=== PATIENT | female | born 1985 | race Two or more races ===

== ENCOUNTER 2021-01-25 17:21 | Emergency (ER) | payer MEDICAID ==
[2021-01-25] MEDS ORDERED: Sodium Chloride 0.9% 10 ML Syringe FLUSH PRN (17:52)
[2021-01-25] MEDS ORDERED: Ondansetron 4 MG/2 ML SDV IVPUSH STA (17:53)
[2021-01-25] MEDS ORDERED: Morphine 2 MG/ML SYRINGE IVPUSH STA ×2 (17:53→19:32)
[2021-01-25] MEDS ORDERED: Sodium Chloride 0.9% 1,000 ML IV SCH (18:00)
[2021-01-25] MEDS ORDERED: Iopamidol 755 Mg/ML 75 ML Bottle IV ONE (18:02)
[2021-01-25] MEDS ORDERED: Alum Hydroxide/Mag Hydroxide 15 ML, Lidocaine 2% 15 ML PO ONE ×2 (19:06)
[2021-01-25] MEDS ORDERED: Ondansetron 4 MG/2 ML SDV IVPUSH ONE (19:06)
--- NOTE | 2021-01-25 19:27 | EDM.PDOC ---
ED HPI GENERAL MEDICAL PROBLEM - General Chief Complaint: Abdominal Pain Stated Complaint: ABD PAIN Time Seen by Provider: 01/25/21 17:25 Source of Information: Reports: Patient History Limitations: Reports: No Limitations - History of Present Illness INITIAL COMMENTS - FREE TEXT/NARRATIVE: Patient presented to the ED because of epigastric and RUQ pain radiation to the back. She also c/o dysuria and frequency. There is no fever/chills, cough/cold but c/o nausea, no vomiting or diarrhea. 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 01/25/21 [Rx] Past Medical History Other Cardiovascular History: internal defibulator Social & Family History - Family History Family Medical History: No Pertinent Family History - Tobacco Use Tobacco Use Status *Q: Never Tobacco User - Caffeine Use Caffeine Use: Reports: None - Recreational Drug Use Recreational Drug Use: No ED ROS GENERAL - Review of Systems Review Of Systems: See Below Constitutional: Reports: No Symptoms HEENT: Reports: No Symptoms Respiratory: Reports: No Symptoms Cardiovascular: Reports: No Symptoms Endocrine: Reports: No Symptoms GI/Abdominal: Reports: Abdominal Pain, Nausea : Reports: Dysuria, Frequency Musculoskeletal: Reports: No Symptoms Skin: Reports: No Symptoms Neurological: Reports: No Symptoms ED EXAM, GI/ABD - Physical Exam Exam: See Below Exam Limited By: No Limitations General Appearance: Alert, No Apparent Distress Ears: Normal External Exam, Normal [place] Nose: Normal Inspection, Normal Mucosa, No Blood Throat/Mouth: Normal Inspection, Normal Lips, Normal Teeth Head: Atraumatic, Normocephalic Neck: Normal Inspection, Supple, Non-Tender, Full Range of Motion Respiratory/Chest: No Respiratory Distress, Lungs Clear, Normal Breath Sounds Cardiovascular: Normal Peripheral Pulses, Regular Rate, Rhythm, No Edema, No Gallop, No JVD, No Murmur GI/Abdominal Exam: Normal Bowel Sounds, Soft, No Organomegaly, Other (epigastric and RUQ T) Back Exam: Normal Inspection, Full Range of Motion Extremities: Normal Inspection, Normal Range of Motion, Non-Tender Neurological: Alert, Oriented, CN II-XII Intact, Normal Cognition Psychiatric: Normal Affect, Normal Mood Course - Vital Signs Text/Narrative:: Lab/CT result was reviewed and discussed with patient NS 1 L bolus Zofran 4 mg IV x 2 dose Morphine 2 mg IV x2 doses GI cocktail po x1 Last Recorded V/S: Last Vital Signs Temp 37.1 C 01/25/21 17:22 Pulse 81 01/25/21 19:45 Resp 18 01/25/21 19:45 BP 117/83 01/25/21 19:45 Pulse Ox 99 01/25/21 19:45 - Orders/Labs/Meds Orders: Active Orders 24 hr Category Date Time Status Saline Lock Insert [OM.PC] Routine Oth 01/25/21 17:52 Ordered Labs: Laboratory Tests 01/25/21 01/25/21 01/25/21 Range/Units 17:45 18:15 18:15 WBC 5.2 (3.0-10.3) x10-3/uL RBC 4.28 (3.60-5.20) x10(6)uL Hgb 13.4 (11.4-15.5) g/dL Hct 39.9 (34.2-48.2) % MCV 93.2 (76.7-100.5) fL MCH 31.3 (23.9-33.9) pg MCHC 33.6 (31.9-34.8) g/dL RDW 14.0 (12.3-16.5) % Plt Count 239 (151-488) x10(3)uL MPV 8.1 (7.1-12.4) fL Neut % (Auto) 63.0 (30.8-76.2) % Lymph % (Auto) 25.3 (18.4-52.1) % [place] % (Auto) 8.4 (4.4-15.7) % Eos % (Auto) 2.4 (0.6-8.1) % Baso % (Auto) 0.9 (0.2-1.5) % Neut # (Auto) 3.3 (1.5-6.3) x10-3/uL Lymph # (Auto) 1.3 (1.0-4.4) x10-3/uL [place] # (Auto) 0.4 (0.3-1.0) x10-3/uL Eos # (Auto) 0.1 (0.0-0.8) x10-3/uL Baso # (Auto) 0.0 (0.0-0.1) x10-3/uL Sodium 143 (135-145) mmol/L Potassium 4.0 (3.5-5.3) mmol/L Chloride 107 (100-110) mmol/L Carbon Dioxide 28 (21-32) mmol/L BUN 11 (7-18) mg/dL Creatinine 0.7 (0.55-1.02) mg/dL Est Cr Clr Drug Dosing 79.80 mL/min Estimated GFR (MDRD) > 60 (>60) BUN/Creatinine Ratio 15.7 (9-20) Glucose 103 (80-116) mg/dL Calcium 8.4 L (8.6-10.2) mg/dL Total Bilirubin 0.2 (0.1-1.3) mg/dL AST 14 (5-25) IU/L ALT 26 (12-36) U/L Alkaline Phosphatase 57 (56-112) IU/L Total Protein 6.8 (6.0-8.0) g/dL Albumin 3.4 L (3.5-5.2) g/dL Globulin 3.4 g/dL Albumin/Globulin Ratio 1.0 Amylase 98 (25-115) U/L Lipase (73-393) U/L Urine Color Yellow (YELLOW) Urine Appearance Clear (CLEAR) Urine pH 6.0 (5.0-6.5) Ur Specific [place] 1.020 (1.010-1.025) Urine Protein Negative (NEGATIVE) mg/dL Urine Glucose (UA) Normal (NORMAL) mg/dL Urine Ketones Negative (NEGATIVE) mg/dL Urine Occult Blood Negative (NEGATIVE) Urine Nitrite Negative (NEGATIVE) Urine Bilirubin Negative (NEGATIVE) Urine Urobilinogen Normal (NEGATIVE) mg/dL Ur Leukocyte Esterase Negative (NEGATIVE) Urine RBC 0-5 (0-5) Urine WBC 0-5 (0-5) Ur Squamous Epith Cells Few H (NS,R,O) Urine Bacteria Few H (NS) 01/25/21 Range/Units 18:15 WBC (3.0-10.3) x10-3/uL RBC (3.60-5.20) x10(6)uL Hgb (11.4-15.5) g/dL Hct (34.2-48.2) % MCV (76.7-100.5) fL MCH (23.9-33.9) pg MCHC (31.9-34.8) g/dL RDW (12.3-16.5) % Plt Count (151-488) x10(3)uL MPV (7.1-12.4) fL Neut % (Auto) (30.8-76.2) % Lymph % (Auto) (18.4-52.1) % [place] % (Auto) (4.4-15.7) % Eos % (Auto) (0.6-8.1) % Baso % (Auto) (0.2-1.5) % Neut # (Auto) (1.5-6.3) x10-3/uL Lymph # (Auto) (1.0-4.4) x10-3/uL [place] # (Auto) (0.3-1.0) x10-3/uL Eos # (Auto) (0.0-0.8) x10-3/uL Baso # (Auto) (0.0-0.1) x10-3/uL Sodium (135-145) mmol/L Potassium (3.5-5.3) mmol/L Chloride (100-110) mmol/L Carbon Dioxide (21-32) mmol/L BUN (7-18) mg/dL Creatinine (0.55-1.02) mg/dL Est Cr Clr Drug Dosing mL/min Estimated GFR (MDRD) (>60) BUN/Creatinine Ratio (9-20) Glucose (80-116) mg/dL Calcium (8.6-10.2) mg/dL Total Bilirubin (0.1-1.3) mg/dL AST (5-25) IU/L ALT (12-36) U/L Alkaline Phosphatase (56-112) IU/L Total Protein (6.0-8.0) g/dL Albumin (3.5-5.2) g/dL Globulin g/dL Albumin/Globulin Ratio Amylase (25-115) U/L Lipase 92 (73-393) U/L Urine Color (YELLOW) Urine Appearance (CLEAR) Urine pH (5.0-6.5) Ur Specific [place] (1.010-1.025) Urine Protein (NEGATIVE) mg/dL Urine Glucose (UA) (NORMAL) mg/dL Urine Ketones (NEGATIVE) mg/dL Urine Occult Blood (NEGATIVE) Urine Nitrite (NEGATIVE) Urine Bilirubin (NEGATIVE) Urine Urobilinogen (NEGATIVE) mg/dL Ur Leukocyte Esterase (NEGATIVE) Urine RBC (0-5) Urine WBC (0-5) Ur Squamous Epith Cells (NS,R,O) Urine Bacteria (NS) Meds: Medications Discontinued Medications Generic Name Dose Route Start Last Admin Trade Name Freq PRN Reason Stop Dose Admin Al Hydroxide/Mg Hydroxide 15 0 ml 01/25/21 19:06 01/25/21 19:18 ml/ Lidocaine HCl 15 ml PO 01/25/21 19:07 30 ml ONETIME ONE Administration Sodium Chloride 1,000 mls @ 999 mls/hr 01/25/21 18:00 01/25/21 18:40 Normal Saline IV 999 mls/hr ASDIRECTED YOSSI Administration Iopamidol 75 ml 01/25/21 18:02 01/25/21 18:29 Iopamidol 755 Mg/Ml 75 Ml Bottle IV 01/25/21 18:03 72 ml ASDIRECTED ONE Administration Morphine Sulfate 2 mg 01/25/21 17:53 01/25/21 18:45 Morphine 2 Mg/Ml Syringe IVPUSH 01/25/21 17:54 2 mg NOW STA Administration Morphine Sulfate 2 mg 01/25/21 19:32 01/25/21 19:39 Morphine 2 Mg/Ml Syringe IVPUSH 01/25/21 19:33 2 mg NOW STA Administration Ondansetron HCl 4 mg 01/25/21 17:53 01/25/21 18:42 Ondansetron 4 Mg/2 Ml Sdv IVPUSH 01/25/21 17:54 4 mg NOW STA Administration Ondansetron HCl 4 mg 01/25/21 19:06 01/25/21 19:16 Ondansetron 4 Mg/2 Ml Sdv IVPUSH 01/25/21 19:07 4 mg ONETIME ONE Administration Sodium Chloride 10 ml 01/25/21 17:52 Sodium Chloride 0.9% 10 Ml Syringe FLUSH ASDIRECTED PRN Keep Vein Open Departure - Departure Time of Disposition: 19:45 Disposition: Home, Self-Care 01 Condition: Good Clinical Impression: GERD (gastroesophageal reflux disease), Abdominal pain - Discharge Information Prescriptions: Omeprazole 20 mg PO DAILY #30 tablet.dr Instructions: Food Choices for Gastroesophageal Reflux Disease, Adult, [id number], Gastroesophageal Reflux Disease, Adult, [id number] Referrals: PCP,None [Primary Care Provider] - Forms: ED Department Discharge Additional Instructions: Please read discharge instructions on GERD/Acid Reflux Avoid spicy and greasy foods while being treated TUMS extra strength(over the counter at [facility]) chew 3 tablets and swallow,drink lukewarm water with it Omeprazole 20 mg daily Follow up as needed Sepsis Event Note (ED) - Evaluation Sepsis Screening Result: No Definite Risk - My Orders Last 24 Hours: My Active Orders 01/25/21 17:52 Saline Lock Insert [OM.PC] Routine - Assessment/Plan Last 24 Hours: My Active Orders 01/25/21 17:52 Saline Lock Insert [OM.PC] Routine
--- NOTE | 2021-01-25 20:20 | CT ---
INDICATION: Right upper quadrant and epigastric pain. CT ABDOMEN AND PELVIS WITH IV CONTRAST [id number]: Spiral 3.75 mm axial sections were obtained through the abdomen and pelvis with 72 mL Isovue-370 at 1.8 mL/second with sagittal and coronal reconstructions 01/25/21 - no comparisons. Total exam DLP was 562.32 mGy-cm. The lower lung reyes and pleural spaces visualized appeared normal. The heart appeared normal in size. No pericardial effusion was seen. The liver, gallbladder, adrenal glands, kidneys, spleen, and pancreas appeared to be normal. No retroperitoneal mass was seen. The appendix appeared normal, visualized on axial image 55 to 68. No evidence of free air or a definite bowel obstruction was seen. There are fluid-filled loops of small bowel which are of no significant, possibly relating to fluid intake. No significant air-fluid levels or mechanically obstructive process was strongly suggested. The uterus is absent compatible with hysterectomy. In the left lower pelvis there is a thick-walled mass with central low density which may represent an ovarian cyst, possibly complicated, even a cystic mass. Follow-up study may be warranted such as pelvic ultrasound to further document this lesion. It measured approximately 23.5 x 25.9 mm. No other mass lesions, organomegaly, or free fluid collections were identified in the abdomen and pelvis. No evidence of pyelonephritis or obstructive uropathy was seen. No evidence of abdominal wall or inguinal hernias were identified. IMPRESSION: 1. 25.9 mm apparently cystic mass with thick wall felt to be in the area of the left ovary in the pelvis. Follow-up ultrasound may be helpful for further evaluation. 2. No specific etiology was identified regarding the patient's right upper quadrant pain. Report was called to Dr. Lee at 1858 hours, 01/25/21. [facility]
== END 2021-01-25 20:00 | disposition home or self-care (01) ==
LOC: FB.ED 17:21
DX: K21.9 Gastro-esophageal reflux disease without esophagitis (principal); Z79.899 Other long term (current) drug therapy
CPT/HCPCS: 36415; 74177; 80053; 81001; 82150; 83690; 85025; 96374; 96375; 96376; 99284; 99284-25; A9270-GY; J2270; J2405; J7030; Q9967

== ENCOUNTER 2021-03-23 20:44 | Emergency (ER) | payer SELFPAY ==
[2021-03-23] MEDS ORDERED: Sodium Chloride 0.9% 1,000 ML IV ONE (21:18)
[2021-03-23] MEDS ORDERED: Ketorolac 30 MG/ML SDV IVPUSH ONE (21:18)
[2021-03-23] MEDS ORDERED: Metoclopramide 10 MG/2 ML SDV IVPUSH ONE (21:18)
--- NOTE | 2021-03-23 21:25 | EDM.PDOC ---
ED HPI GENERAL MEDICAL PROBLEM - General Chief Complaint: Abdominal Pain Stated Complaint: abdominal pain and itching Time Seen by Provider: 03/23/21 21:05 Source of Information: Reports: Patient History Limitations: Reports: No Limitations - History of Present Illness INITIAL COMMENTS - FREE TEXT/NARRATIVE: c/o abd pain x 18h pt lives with her 2 sons, not working outside house home yesterday morning when developed pain across abd, "whole abd," has not gone away, now worse, not cramping, no radiation has felt warm, no temp here eats food and "feels like I am going to explode", ate yogurt for supper h/o hys for fibroids, no other abd surgery no previous abd pain APAP and ibuprofen did not help friends dropped her off at the the ED BM today was "normal" some N, no V Abdomen Pain Score (Numeric/FACES): 10 - Related Data Allergies Allergy/AdvReac Type Severity Reaction Status Date / Time No Known Allergies Allergy Verified 03/23/21 21:07 Home Meds: Home Meds Omeprazole 20 mg PO DAILY #30 tablet. 01/25/21 [Rx] Past Medical History Other Cardiovascular History: internal defibulator Social & Family History - Family History Family Medical History: No Pertinent Family History - Tobacco Use Tobacco Use Status *Q: Unknown Ever Used Tobacco - Caffeine Use Caffeine Use: Reports: None ED ROS GENERAL - Review of Systems Review Of Systems: See Below Constitutional: Reports: No Symptoms HEENT: Reports: No Symptoms Respiratory: Reports: No Symptoms Cardiovascular: Reports: No Symptoms Endocrine: Reports: No Symptoms GI/Abdominal: Reports: Abdominal Pain, Nausea. Denies: Constipation, Diarrhea, Vomiting : Reports: No Symptoms Musculoskeletal: Reports: No Symptoms Skin: Reports: No Symptoms Neurological: Reports: No Symptoms Psychiatric: Reports: No Symptoms Hematologic/Lymphatic: Reports: No Symptoms Immunologic: Reports: No Symptoms ED EXAM, GI/ABD - Physical Exam Exam: See Below Exam Limited By: No Limitations General Appearance: Alert, WD/WN, No Apparent Distress, Other (moves easily, appears uncomfortable, tearful at times) Ears: Hearing Grossly Normal Nose: Normal Inspection, Normal Mucosa Throat/Mouth: Normal Inspection, Normal Lips, Normal Teeth, Normal Voice, No Airway Compromise Head: Atraumatic, Normocephalic Neck: Normal Inspection, Supple, Non-Tender. No: Lymphadenopathy (R), Lymphadenopathy (L) Respiratory/Chest: No Respiratory Distress, Lungs Clear, Normal Breath Sounds, Chest Non-Tender Cardiovascular: Regular Rate, Rhythm, No Edema, No Murmur GI/Abdominal Exam: Normal Bowel Sounds, Soft, No Organomegaly, No Distention, Other (ND, very soft, normal BS, 1+ tender across lower abd but not flanks or upper abd, RLQ not more tender than LLQ, no CVAT). No: Guarding, Rigid, Rebound, Abnormal Bowel Sounds Back Exam: Normal Inspection, Full Range of Motion. No: CVA Tenderness (R), CVA Tenderness (L) Extremities: Normal Inspection, Normal Range of Motion, Non-Tender Neurological: Alert, Oriented, CN II-XII Intact, Normal Cognition, No Motor/Sensory Deficits Psychiatric: Normal Affect, Normal Mood Skin Exam: Warm, Dry, Intact, Normal Color, No Rash Lymphatic: No Adenopathy Course - Vital Signs Last Recorded V/S: Last Vital Signs Temp 36.8 C 03/23/21 21:19 Pulse 98 03/23/21 21:19 Resp 14 03/23/21 21:19 BP 120/73 03/23/21 21:19 Pulse Ox 97 03/23/21 21:19 - Orders/Labs/Meds Orders: Active Orders 24 hr Category Date Time Status Abdomen 2V AP Flat Upright [CR] Stat Exams 03/23/21 22:02 Taken Magnesium Citrate [Citrate of Magnesia] Med 03/23/21 22:57 Once 296 ml PO ONETIME ONE Sodium Chloride 0.9% [Saline Flush] Med 03/23/21 22:50 Active 10 ml FLUSH ASDIRECTED PRN Medication Orders Sodium Chloride (Sodium Chloride 0.9% 10 Ml Syringe) 10 ml FLUSH ASDIRECTED PRN PRN Reason: Keep Vein Open Last Admin: 03/23/21 22:51 Dose: 10 ml Documented by: JUSTA Labs: Laboratory Tests 03/23/21 03/23/21 03/23/21 Range/Units 20:55 21:27 21:27 WBC 6.5 (3.0-10.3) x10-3/uL RBC 4.87 (3.60-5.20) x10(6)uL Hgb 14.7 (11.4-15.5) g/dL Hct 44.3 (34.2-48.2) % MCV 91.0 (76.7-100.5) fL MCH 30.2 (23.9-33.9) pg MCHC 33.2 (31.9-34.8) g/dL RDW 14.0 (12.3-16.5) % Plt Count 288 (151-488) x10(3)uL MPV 7.4 (7.1-12.4) fL Neut % (Auto) 62.4 (30.8-76.2) % Lymph % (Auto) 26.4 (18.4-52.1) % [place] % (Auto) 8.4 (4.4-15.7) % Eos % (Auto) 2.1 (0.6-8.1) % Baso % (Auto) 0.7 (0.2-1.5) % Neut # (Auto) 4.0 (1.5-6.3) x10-3/uL Lymph # (Auto) 1.7 (1.0-4.4) x10-3/uL [place] # (Auto) 0.5 (0.3-1.0) x10-3/uL Eos # (Auto) 0.1 (0.0-0.8) x10-3/uL Baso # (Auto) 0.0 (0.0-0.1) x10-3/uL Sodium 140 (135-145) mmol/L Potassium 3.8 (3.5-5.3) mmol/L Chloride 103 (100-110) mmol/L Carbon Dioxide 28 (21-32) mmol/L BUN 24 H D (7-18) mg/dL Creatinine 0.6 (0.55-1.02) mg/dL Est Cr Clr Drug Dosing TNP Estimated GFR (MDRD) > 60 (>60) BUN/Creatinine Ratio 40.0 H (9-20) Glucose 98 (80-116) mg/dL Calcium 9.4 (8.6-10.2) mg/dL Total Bilirubin 0.2 (0.1-1.3) mg/dL AST 13 (5-25) IU/L ALT 29 D (12-36) U/L Alkaline Phosphatase 70 (56-112) IU/L C-Reactive Protein (0.5-0.9) mg/dL Total Protein 7.8 (6.0-8.0) g/dL Albumin 3.8 (3.5-5.2) g/dL Globulin 4.0 g/dL Albumin/Globulin Ratio 1.0 Lipase (73-393) U/L Urine Color Yellow (YELLOW) Urine Appearance Clear (CLEAR) Urine pH 6.0 (5.0-6.5) Ur Specific [place] 1.015 (1.010-1.025) Urine Protein Negative (NEGATIVE) mg/dL Urine Glucose (UA) Normal (NORMAL) mg/dL Urine Ketones Negative (NEGATIVE) mg/dL Urine Occult Blood Moderate H (NEGATIVE) Urine Nitrite Negative (NEGATIVE) Urine Bilirubin Negative (NEGATIVE) Urine Urobilinogen Normal (NEGATIVE) mg/dL Ur Leukocyte Esterase Negative (NEGATIVE) Urine RBC 0-5 (0-5) Urine WBC 0-5 (0-5) Ur Squamous Epith Cells Few H (NS,R,O) Urine Bacteria Few H (NS) 03/23/21 Range/Units 21:27 WBC (3.0-10.3) x10-3/uL RBC (3.60-5.20) x10(6)uL Hgb (11.4-15.5) g/dL Hct (34.2-48.2) % MCV (76.7-100.5) fL MCH (23.9-33.9) pg MCHC (31.9-34.8) g/dL RDW (12.3-16.5) % Plt Count (151-488) x10(3)uL MPV (7.1-12.4) fL Neut % (Auto) (30.8-76.2) % Lymph % (Auto) (18.4-52.1) % [place] % (Auto) (4.4-15.7) % Eos % (Auto) (0.6-8.1) % Baso % (Auto) (0.2-1.5) % Neut # (Auto) (1.5-6.3) x10-3/uL Lymph # (Auto) (1.0-4.4) x10-3/uL [place] # (Auto) (0.3-1.0) x10-3/uL Eos # (Auto) (0.0-0.8) x10-3/uL Baso # (Auto) (0.0-0.1) x10-3/uL Sodium (135-145) mmol/L Potassium (3.5-5.3) mmol/L Chloride (100-110) mmol/L Carbon Dioxide (21-32) mmol/L BUN (7-18) mg/dL Creatinine (0.55-1.02) mg/dL Est Cr Clr Drug Dosing Estimated GFR (MDRD) (>60) BUN/Creatinine Ratio (9-20) Glucose (80-116) mg/dL Calcium (8.6-10.2) mg/dL Total Bilirubin (0.1-1.3) mg/dL AST (5-25) IU/L ALT (12-36) U/L Alkaline Phosphatase (56-112) IU/L C-Reactive Protein < 0.2 L (0.5-0.9) mg/dL Total Protein (6.0-8.0) g/dL Albumin (3.5-5.2) g/dL Globulin g/dL Albumin/Globulin Ratio Lipase 108 (73-393) U/L Urine Color (YELLOW) Urine Appearance (CLEAR) Urine pH (5.0-6.5) Ur Specific [place] (1.010-1.025) Urine Protein (NEGATIVE) mg/dL Urine Glucose (UA) (NORMAL) mg/dL Urine Ketones (NEGATIVE) mg/dL Urine Occult Blood (NEGATIVE) Urine Nitrite (NEGATIVE) Urine Bilirubin (NEGATIVE) Urine Urobilinogen (NEGATIVE) mg/dL Ur Leukocyte Esterase (NEGATIVE) Urine RBC (0-5) Urine WBC (0-5) Ur Squamous Epith Cells (NS,R,O) Urine Bacteria (NS) Meds: Medications Generic Name Dose Route Start Last Admin Trade Name Freq PRN Reason Stop Dose Admin Sodium Chloride 10 ml 03/23/21 22:50 03/23/21 22:51 Sodium Chloride 0.9% 10 Ml Syringe FLUSH 10 ml ASDIRECTED PRN Administration Keep Vein Open Discontinued Medications Generic Name Dose Route Start Last Admin Trade Name Freq PRN Reason Stop Dose Admin Diphenhydramine HCl 25 mg 03/23/21 22:05 03/23/21 22:45 Diphenhydramine 50 Mg/Ml Sdv IVPUSH 03/23/21 22:06 25 mg ONETIME ONE Administration Sodium Chloride 1,000 mls @ 999 mls/hr 03/23/21 21:18 03/23/21 21:29 Normal Saline IV 03/23/21 22:18 999 mls/hr .BOLUS ONE Administration Ketorolac Tromethamine 30 mg 03/23/21 21:18 03/23/21 21:31 Ketorolac 30 Mg/Ml Sdv IVPUSH 03/23/21 21:19 30 mg ONETIME ONE Administration Metoclopramide HCl 10 mg 03/23/21 21:18 03/23/21 21:32 Metoclopramide 10 Mg/2 Ml Sdv IVPUSH 03/23/21 21:19 10 mg ONETIME ONE Administration - Re-Assessments/Exams Free Text/Narrative Re-Assessment/Exam: 03/23/21 23:00 labs neg except mild inc'd BUN KUB 2v with plug of stool in RUQ as well across transverse colon and in pelvis, no AFL hx/PE/labs/imaging all c/w constipation, nonacute abd, no localized pain, abd quite soft and nontender to even deep palpation after meds Departure - Departure Time of Disposition: 22:57 Disposition: Home, Self-Care 01 Condition: Good Clinical Impression: Colon spasm, Constipation - Discharge Information *PRESCRIPTION DRUG MONITORING PROGRAM REVIEWED*: Not Applicable *COPY OF PRESCRIPTION DRUG MONITORING REPORT IN PATIENT JANETH: Not Applicable Instructions: Constipation, Adult Forms: ED Department Discharge Additional Instructions: Drink a second bottle of magnesium citrate in the morning. For pain and spasm, take ibuprofen 200 mg 3 tabs and diphenhydramine (Benadryl) 25 mg 1 tab every 6 hours for 2 or 3 more doses. Use heat for 10 minutes in tub or shower every 2 hours as needed. See your doctor in 2 days if you are not 100% pain free. Return to Emergency Department if you feel worse. Sepsis Event Note (ED) - Focused Exam Vital Signs: Vital Signs Temp Pulse Resp BP Pulse Ox 03/23/21 21:19 36.8 C 98 14 120/73 97 - My Orders Last 24 Hours: My Active Orders 03/23/21 22:02 Abdomen 2V AP Flat Upright [CR] Stat 03/23/21 22:50 Sodium Chloride 0.9% [Saline Flush] 10 ml FLUSH ASDIRECTED PRN 03/23/21 22:57 Magnesium Citrate [Citrate of Magnesia] 296 ml PO ONETIME ONE - Assessment/Plan Last 24 Hours: My Active Orders 03/23/21 22:02 Abdomen 2V AP Flat Upright [CR] Stat 03/23/21 22:50 Sodium Chloride 0.9% [Saline Flush] 10 ml FLUSH ASDIRECTED PRN 03/23/21 22:57 Magnesium Citrate [Citrate of Magnesia] 296 ml PO ONETIME ONE
[2021-03-23] MEDS ORDERED: diphenhydrAMINE 50 MG/ML SDV IVPUSH ONE (22:05)
[2021-03-23] MEDS ORDERED: Sodium Chloride 0.9% 10 ML Syringe FLUSH PRN (22:50)
[2021-03-23] MEDS ORDERED: Magnesium Citrate Solution 296 ML Bottle PO ONE (22:57)
--- NOTE | 2021-03-24 16:58 | CR ---
INDICATION: Lower abdominal pain x2 days. ABDOMEN TWO-VIEW: Four images of the abdomen in supine and upright projections revealed a nonspecific pattern of gas and feces with a moderate amount of stool in the colon, with no evidence of free air or bowel obstruction. A minimal dextroconvex rotoscoliosis of the lower middle lumbar spine is noted. No organomegaly, mass lesions or pathologic calcifications were identified. Lower lung reyes and pleural spaces appeared unremarkable. IMPRESSION: 1. Nonacute abdomen - moderate amount of stool present in the colon with gas and stool noted in the rectum and rectosigmoid areas. 2. Mild scoliosis. MTDD
== END 2021-03-23 23:13 | disposition home or self-care (01) ==
LOC: FB.ED 20:44
DX: K58.1 Irritable bowel syndrome with constipation (principal); Z79.899 Other long term (current) drug therapy
CPT/HCPCS: 74019; 80053; 81001; 83690; 85025; 86140; 96374; 96375; 99284; A9270; J1200; J1885; J2765; J7030

== ENCOUNTER 2021-04-03 23:37 | Emergency (ER) | payer SELFPAY ==
[2021-04-04] MEDS ORDERED: Aspirin 81 MG Tab.Chew PO ONE (00:11)
--- NOTE | 2021-04-04 00:53 | EDM.PDOC ---
ED HPI GENERAL MEDICAL PROBLEM - General Chief Complaint: General Stated Complaint: Weakness, Chest Pressure Time Seen by Provider: 04/03/21 23:40 Source of Information: Reports: Patient, Family History Limitations: Reports: No Limitations - History of Present Illness INITIAL COMMENTS - FREE TEXT/NARRATIVE: Patient presented to the ED because of chset pain which stated 2 days ago. the pain is sharp, left ant chest wall, pleuritic type. There is o N/V, no fever, chills, cough or cold. - Related Data Allergies Allergy/AdvReac Type Severity Reaction Status Date / Time No Known Allergies Allergy Verified 03/23/21 21:07 Home Meds: Home Meds Omeprazole 20 mg PO DAILY #30 tablet. 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: - Past Surgical History Female Surgical History: Reports: Hysterectomy Social & Family History - Family History Family Medical History: No Pertinent Family History - Caffeine Use Caffeine Use: Reports: None ED ROS GENERAL - Review of Systems Review Of Systems: See Below Constitutional: Reports: No Symptoms HEENT: Reports: No Symptoms Respiratory: Reports: No Symptoms Cardiovascular: Reports: Chest Pain Endocrine: Reports: No Symptoms GI/Abdominal: Reports: No Symptoms : Reports: No Symptoms Musculoskeletal: Reports: No Symptoms ED EXAM, GENERAL - Physical Exam Exam: See Below Exam Limited By: No Limitations General Appearance: Alert, No Apparent Distress Ears: Normal External Exam, Normal Canal Nose: Normal Inspection, Normal Mucosa, No Blood Throat/Mouth: Normal Inspection, Normal Lips, Normal Teeth, Normal Gums Head: Atraumatic, Normocephalic Neck: Normal Inspection, Supple, Non-Tender, Full Range of Motion Respiratory/Chest: No Respiratory Distress, Lungs Clear, Normal Breath Sounds, No Accessory Muscle Use, Other (Left chest wall tenderness) Cardiovascular: Normal Peripheral Pulses, Regular Rate, Rhythm, No Edema, No Gallop GI/Abdominal: Normal Bowel Sounds, Soft, Non-Tender, No Organomegaly, No Distention, No Abnormal Bruit Back Exam: Normal Inspection, Full Range of Motion Extremities: Normal Inspection, Normal Range of Motion Neurological: Alert, Oriented, CN II-XII Intact, Normal Cognition Psychiatric: Normal Affect, Normal Mood #1 Interpretation EKG Date: 04/03/21 Time: 23:38 Rhythm: NSR Rate (Beats/Min): 79 [place]: Normal P-Wave: Present QRS: Normal TN/PQ Interval: 138 Comparison: NA - No Prior EKG EKG Interpretation Comments: NSR Course - Vital Signs Text/Narrative:: Lab/EKG result was reviewed with patient and her son ASA 324 mg PO x1 Toradol 60 mg IM x1 Flexeril 10 mg PO x1 Last Recorded V/S: Last Vital Signs Temp 36.6 C 04/03/21 23:40 Pulse Resp BP Pulse Ox - Orders/Labs/Meds Labs: Laboratory Tests 04/04/21 04/04/21 04/04/21 Range/Units 00:15 00:15 00:15 WBC 6.0 (3.0-10.3) x10-3/uL RBC 4.44 (3.60-5.20) x10(6)uL Hgb 13.5 (11.4-15.5) g/dL Hct 40.5 (34.2-48.2) % MCV 91.3 (76.7-100.5) fL MCH 30.4 (23.9-33.9) pg MCHC 33.3 (31.9-34.8) g/dL RDW 13.5 (12.3-16.5) % Plt Count 292 (151-488) x10(3)uL MPV 7.0 L (7.1-12.4) fL Neut % (Auto) 53.4 (30.8-76.2) % Lymph % (Auto) 35.7 (18.4-52.1) % [place] % (Auto) 7.1 (4.4-15.7) % Eos % (Auto) 2.7 (0.6-8.1) % Baso % (Auto) 1.1 (0.2-1.5) % Neut # (Auto) 3.2 (1.5-6.3) x10-3/uL Lymph # (Auto) 2.1 (1.0-4.4) x10-3/uL Stephens # (Auto) 0.4 (0.3-1.0) x10-3/uL Eos # (Auto) 0.2 (0.0-0.8) x10-3/uL Baso # (Auto) 0.1 (0.0-0.1) x10-3/uL Sodium 140 (135-145) mmol/L Potassium 3.7 (3.5-5.3) mmol/L Chloride 105 (100-110) mmol/L Carbon Dioxide 25 (21-32) mmol/L BUN 20 H (7-18) mg/dL Creatinine 0.8 (0.55-1.02) mg/dL Est Cr Clr Drug Dosing TNP Estimated GFR (MDRD) > 60 (>60) BUN/Creatinine Ratio 25.0 H (9-20) Glucose 102 (80-116) mg/dL Calcium 8.5 L (8.6-10.2) mg/dL Total Bilirubin 0.3 (0.1-1.3) mg/dL AST 11 D (5-25) IU/L ALT 23 D (12-36) U/L Alkaline Phosphatase 59 (56-112) IU/L Troponin I 6.1 (4.0-60.3) pg/mL Total Protein 7.0 (6.0-8.0) g/dL Albumin 3.5 (3.5-5.2) g/dL Globulin 3.5 g/dL Albumin/Globulin Ratio 1.0 Meds: Medications Discontinued Medications Generic Name Dose Route Start Last Admin Trade Name Freq PRN Reason Stop Dose Admin Aspirin 324 mg 04/04/21 00:11 04/04/21 00:24 Aspirin 81 Mg Tab.Chew PO 04/04/21 00:12 324 mg ONETIME ONE Administration Cyclobenzaprine HCl 10 mg 04/04/21 01:00 04/04/21 01:07 Cyclobenzaprine 10 Mg Tab PO 04/04/21 01:01 10 mg NOW STA Administration Ketorolac Tromethamine 60 mg 04/04/21 01:00 04/04/21 01:07 Ketorolac 30 Mg/Ml Sdv IM 04/04/21 01:01 60 mg NOW STA Administration Departure - Departure Time of Disposition: 12:50 Disposition: Home, Self-Care 01 Condition: Good Clinical Impression: Atypical chest pain - Discharge Information Prescriptions: Cyclobenzaprine [Flexeril] 10 mg PO TID PRN #30 tab PRN Reason: Spasms Instructions: Nonspecific Chest Pain, Adult, [id number] Referrals: PCP,None [Primary Care Provider] - Forms: ED Department Discharge Additional Instructions: Please read discharge instructions on atypical chest pain Take flexeril 10 mg, ibuprofen 800 mg, tylenol 1000 mg every 8 hours as needed for pain Follow up as needed
[2021-04-04] MEDS ORDERED: Cyclobenzaprine 10 MG Tab PO STA (01:00)
[2021-04-04] MEDS ORDERED: Ketorolac 30 MG/ML SDV IM STA (01:00)
== END 2021-04-04 01:30 | disposition home or self-care (01) ==
LOC: FB.ED 23:37
DX: R07.89 Other chest pain (principal); R07.81 Pleurodynia; Z79.899 Other long term (current) drug therapy
CPT/HCPCS: 36415; 80053; 84484; 85025; 93005; 96372; 99285; A9270; J1885

== ENCOUNTER 2021-06-01 20:06 | Emergency (ER) | payer SELFPAY ==
[2021-06-01] MEDS ORDERED: Ketorolac 30 MG/ML SDV IM ONE (20:27)
[2021-06-01] MEDS ORDERED: hydrOXYzine HCl 50 MG/ML SDV IM ONE (20:27)
[2021-06-01] MEDS ORDERED: Loperamide 2 MG Cap PO ONE (20:28)
--- NOTE | 2021-06-01 20:33 | EDM.PDOC ---
ED HPI GENERAL MEDICAL PROBLEM - General Chief Complaint: General Stated Complaint: stomach ache/diar. Time Seen by Provider: 06/01/21 20:30 Source of Information: Reports: Patient History Limitations: Reports: No Limitations - History of Present Illness INITIAL COMMENTS - FREE TEXT/NARRATIVE: Neha complains of diarrhea x 3 days,associated with abd pain,nausea. No fever.Unable to keep anything down. Has tried [facility] Imodium,with no relief. She does have a h/o similar symptoms in the past. Also,she recently had covid. 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 ED EXAM, GENERAL - Physical Exam Exam: See Below Exam Limited By: No Limitations General Appearance: Anxious Nose: Normal Inspection Respiratory/Chest: No Respiratory Distress, Lungs Clear GI/Abdominal: Normal Bowel Sounds, Soft, Non-Tender. No: Distended Psychiatric: Anxious, Tearful Skin Exam: Warm Course - Vital Signs Last Recorded V/S: Last Vital Signs Temp 98.1 F 06/01/21 20:14 Pulse 96 06/01/21 20:14 Resp 18 06/01/21 20:14 BP 117/79 06/01/21 20:14 Pulse Ox 97 06/01/21 20:14 - Orders/Labs/Meds Meds: Medications Discontinued Medications Generic Name Dose Route Start Last Admin Trade Name Freq PRN Reason Stop Dose Admin Hydroxyzine HCl 100 mg 06/01/21 20:27 06/01/21 20:33 Hydroxyzine Hcl 50 Mg/Ml Sdv IM 06/01/21 20:28 100 mg ONETIME ONE Administration Ketorolac Tromethamine 60 mg 06/01/21 20:27 06/01/21 20:33 Ketorolac 30 Mg/Ml Sdv IM 06/01/21 20:28 60 mg ONETIME ONE Administration Loperamide HCl 2 mg 06/01/21 20:28 06/01/21 20:33 Loperamide 2 Mg Cap PO 06/01/21 20:29 2 mg ONETIME ONE Administration Departure - Departure Time of Disposition: 20:43 Disposition: Home, Self-Care 01 Clinical Impression: Colon spasm Diarrhea Qualifiers: Diarrhea type: unspecified type Qualified Code(s): R19.7 - Diarrhea, unspecified Abdominal pain Qualifiers: Abdominal location: generalized Qualified Code(s): R10.84 - Generalized abdominal pain - Discharge Information Prescriptions: Diphenoxylate HCl/Atropine [Lomotil Tablet] 1 each PO QID #10 tablet Ondansetron [Zofran ODT] 4 mg PO Q6H PRN #20 tab.dis PRN Reason: Nausea Instructions: Ondansetron tablets, Viral Gastroenteritis, Adult, [id number], Diphenoxylate; Atropine Tablets Referrals: PCP,Unknown [Ordering Only Provider] - 1 Day Forms: ED Department Discharge Additional Instructions: Increase your fluids Activity as tolerated Follow up with Primary Care Provider if symptoms worsen Take medications as prescribed Sepsis Event Note (ED) - Evaluation Sepsis Screening Result: No Definite Risk - Focused Exam Vital Signs: Vital Signs Temp Pulse Resp BP Pulse Ox 06/01/21 20:14 98.1 F 96 18 117/79 97 - Problem List & Annotations (1) Abdominal pain SNOMED Code(s): 20985560 Code(s): R10.9 - UNSPECIFIED ABDOMINAL PAIN Status: Acute Qualifiers: Abdominal location: generalized Qualified Code(s): R10.84 - Generalized abdominal pain (2) Diarrhea SNOMED Code(s): 42705959 Code(s): R19.7 - DIARRHEA, UNSPECIFIED Status: Acute Qualifiers: Diarrhea type: unspecified type Qualified Code(s): R19.7 - Diarrhea, unspecified - Problem List Review Problem List Initiated/Reviewed/Updated: Yes - Assessment/Plan Plan: Toradol and Vistaril. Lomotil. Zofran
== END 2021-06-01 20:46 | disposition home or self-care (01) ==
LOC: FB.ED 20:06
DX: K58.0 Irritable bowel syndrome with diarrhea (principal)
CPT/HCPCS: 96372; 99283; A9270; J1885; J3410

== ENCOUNTER 2021-10-29 21:18 | Emergency (ER) | payer SELFPAY ==
[2021-10-29] MEDS ORDERED: Ketorolac 30 MG/ML SDV IVPUSH ONE (21:54)
[2021-10-29] MEDS ORDERED: methylPREDNISolone Sodium Succinate 125 MG/2 ML SDV IVPUSH ONE (21:54)
[2021-10-29] MEDS ORDERED: Metoclopramide 10 MG/2 ML SDV IVPUSH ONE (21:54)
[2021-10-29] MEDS ORDERED: Sodium Chloride 0.9% 1,000 ML IV ONE (21:54)
[2021-10-29] MEDS ORDERED: diphenhydrAMINE 50 MG/ML SDV IVPUSH ONE (23:53)
[2021-10-29] MEDS ORDERED: LORazepam 2 MG/ML SDV IVPUSH ONE (23:54)
== END 2021-10-30 01:15 | disposition home or self-care (01) ==
LOC: FB.ED 21:18
DX: G44.209 Tension-type headache, unspecified, not intractable (principal)
CPT/HCPCS: 36415; 80053; 83735; 84484; 85025; 86140; 93005; 96374; 96375; 99284; 99284-25; J1200; J1885; J2060; J2765; J2930; J7030

== ENCOUNTER 2022-06-27 23:23 | Emergency (ER) | payer SELFPAY ==
[2022-06-27] MEDS ORDERED: Ondansetron 4 MG Tab.DIS PO ONE (23:41)
[2022-06-28 00:05] LABS: ESTIMATED GFR 113 mL/min (>60)
[2022-06-28] MEDS ORDERED: Cyclobenzaprine 10 MG Tab PO ONE (00:33)
[2022-06-28] MEDS ORDERED: Ketorolac 30 MG/ML SDV IM STA (00:33)
== END 2022-06-28 00:48 | disposition home or self-care (01) ==
LOC: FB.ED 23:23
DX: R07.9 Chest pain, unspecified (principal); R00.2 Palpitations; R51.9 Headache, unspecified
CPT/HCPCS: 36415; 80053; 84484; 85025; 93005; 96372; 99284; A9270; J1885; Q0162

== ENCOUNTER 2022-10-09 21:58 | Emergency (ER) | payer SELFPAY ==
[2022-10-09] MEDS: Alum Hydroxide/Mag Hydroxide 30 ML, Lidocaine 2% 15 ML PO ONE ×2 (22:50)
[2022-10-09 23:05] LABS: ESTIMATED GFR 123 mL/min (>60)
[2022-10-09] MEDS: Ketorolac 30 MG/ML SDV IM ONE (23:18)
[2022-10-09] MEDS: Ondansetron 4 MG Tab.DIS PO ONE (23:54)
[2022-10-10] MEDS: Alum Hydroxide/Mag Hydroxide 30 ML, Lidocaine 2% 15 ML PO ONE ×2 (01:31)
[2022-10-10] MEDS: Morphine 4 MG/ML VIAL IM ONE (01:31)
[2022-10-10 02:30] VITALS: BP 136/72; PULSE 88
== END 2022-10-10 02:10 | disposition home or self-care (01) ==
LOC: FB.ED 21:58
DX: K21.00 Gastro-esophageal reflux disease with esophagitis, without bleeding (principal); E86.0 Dehydration; N39.0 Urinary tract infection, site not specified; Z79.899 Other long term (current) drug therapy
CPT/HCPCS: 36415; 80053; 81001; 83690; 85025; 86140; 87086; 96372; 99284; A9270-GY; J1885; J2270; Q0162

== ENCOUNTER 2022-11-04 18:13 | Emergency (ER) | payer SELFPAY ==
[2022-11-04] MEDS ORDERED: Sucralfate 1 GM Tab PO ONE ×4 (18:14→19:50)
[2022-11-04] MEDS ORDERED: Alum Hydroxide/Mag Hydroxide 15 ML, Lidocaine 2% 15 ML PO ONE ×2 (18:47)
[2022-11-04 19:22] LABS: ESTIMATED GFR 118 mL/min (>60)
[2022-11-04] MEDS ORDERED: Pantoprazole 40 MG Tab.CR PO STA (20:06)
== END 2022-11-04 20:10 | disposition home or self-care (01) ==
LOC: FB.ED 18:13
DX: K21.9 Gastro-esophageal reflux disease without esophagitis (principal); K52.9 Noninfective gastroenteritis and colitis, unspecified; Z90.710 Acquired absence of both cervix and uterus
CPT/HCPCS: 36415; 80053; 81001; 83605; 83735; 85025; 86140; 87040; 99284; A9270

== ENCOUNTER 2023-01-09 12:18 | Emergency (ER) | payer SELFPAY ==
[2023-01-09] MEDS ORDERED: Sodium Chloride 0.9% 10 ML Syringe FLUSH PRN (12:26)
[2023-01-09] MEDS ORDERED: LORazepam 2 MG/ML SDV IVPUSH ONE (12:26)
[2023-01-09] MEDS ORDERED: Metoprolol Tartrate 50 MG Tab PO ONE (12:30)
[2023-01-09] MEDS ORDERED: Metoprolol Tartrate 25 MG Tab ONE (12:31)
[2023-01-09] MEDS ORDERED: Metoprolol Tartrate 25 MG Tab PO ONE (12:33)
[2023-01-09 12:49] LABS: BASOPHILS ABSOLUTE AUTO 0.1 x10-3/uL (0.0-0.1); BASOPHILS PERCENT AUTO 0.8 % (0.2-1.5); EOSINOPHILS ABSOLUTE AUTO 0.1 x10-3/uL (0.0-0.8); EOSINOPHILS PERCENT AUTO 1.2 % (0.6-8.1); HEMATOCRIT 40.7 % (34.2-48.2); HEMOGLOBIN 13.5 g/dL (11.4-15.5); LYMPHOCYTES ABSOLUTE AUTO 3.3 x10-3/uL (1.0-4.4); LYMPHOCYTES PERCENT AUTO 39.1 % (18.4-52.1); MEAN CORPUSCULAR HEMOGLOBIN 30.4 pg (23.9-33.9); MEAN CORPUSCULAR HGB CONC 33.2 g/dL (31.9-34.8); MEAN CORPUSCULAR VOLUME 91.6 fL (76.7-100.5); MONOCYTES ABSOLUTE AUTO 0.7 x10-3/uL (0.3-1.0); MONOCYTES PERCENT AUTO 8.1 % (4.4-15.7); NEUTROPHILS ABSOLUTE AUTO 4.2 x10-3/uL (1.5-6.3); NEUTROPHILS PERCENT AUTO 50.8 % (30.8-76.2); PLATELET COUNT,PLT 301 x10(3)uL (151-488); RED BLOOD CELL COUNT 4.44 x10(6)uL (3.60-5.20); RED CELL DISTRIBUTION WIDTH 14.4 % (12.3-16.5); WHITE BLOOD CELL COUNT,WBC 8.3 x10-3/uL (3.0-10.3)
[2023-01-09 12:57] LABS: ALANINE AMINOTRANSFERASE,ALT 26 U/L (12-36); ALBUMIN 3.9 g/dL (3.5-5.2); ALKALINE PHOSPHATASE 71 IU/L (56-112); ASPARTATE AMNIOTRANSFERASE,AST 19 IU/L (5-25); BILIRUBIN TOTAL 0.2 mg/dL (0.1-1.3); BLOOD UREA NITROGEN,BUN 21 mg/dL (7-18); BUN/CREATININE RATIO 26.3 (9-20); CALCIUM 9.1 mg/dL (8.6-10.2); CARBON DIOXIDE,CO2 19 mmol/L (21-32); CHLORIDE,CL 101 mmol/L (100-110); CREATININE 0.8 mg/dL (0.55-1.02); ESTIMATED GFR 97 mL/min (>60); GLUCOSE RANDOM 153 mg/dL (80-116); PROTEIN TOTAL,TP 7.8 g/dL (6.0-8.0); SODIUM,NA 136 mmol/L (135-145)
[2023-01-09 13:03] LABS: POTASSIUM,K 2.6 mmol/L (3.5-5.3)
[2023-01-09] MEDS ORDERED: Potassium Chloride 20 MEQ Tab.ER PO ONE ×3 (13:04→17:30)
[2023-01-09] MEDS ORDERED: Sodium Chloride 0.9% 1,000 ML IV SCH (13:15)
[2023-01-09] MEDS ORDERED: Ketorolac 30 MG/ML SDV IVPUSH ONE (13:18)
[2023-01-09 13:19] LABS: BILIRUBIN,URINE NEGATIVE (NEGATIVE); GLUCOSE,URINE NORMAL (NORMAL); KETONES,URINE NEGATIVE (NEGATIVE); LEUKOCYTE ESTERASE,URINE NEGATIVE (NEGATIVE); NITRITE,URINE NEGATIVE (NEGATIVE); OCCULT BLOOD,URINE NEGATIVE (NEGATIVE); PROTEIN,URINE NEGATIVE (NEGATIVE); UROBILINOGEN,URINE NORMAL (NEGATIVE)
[2023-01-09 13:28] LABS: APPEARANCE,URINE CLEAR (CLEAR); BACTERIA,URINE FEW (NS); COLOR,URINE YELLOW (YELLOW); SQUAMOUS EPITHELIAL CELLS,UR OCCASIONAL (NS,R,O); WBC,URINE 0-5 (0-5)
[2023-01-09 13:29] LABS: AMPHETAMINES SCREEN, URINE NEGATIVE (NEGATIVE); BARBITURATE SCREEN,URINE NEGATIVE (NEGATIVE); BENZODIAZEPINES SCREEN,URINE NEGATIVE (NEGATIVE); METHADONE SCREEN, URINE NEGATIVE (NEGATIVE); METHAMPHETAMINE SCREEN, URINE NEGATIVE (NEGATIVE); OXYCODONE SCREEN,URINE NEGATIVE (NEGATIVE); PROPOXYPHENE SCREEN,URINE NEGATIVE (NEGATIVE); THC SCREEN,URINE NEGATIVE (NEGATIVE)
[2023-01-09 13:30] LABS: BUPRENORPHINE SCREEN,URINE NEGATIVE (NEGATIVE)
[2023-01-09] MEDS ORDERED: Acetaminophen/HYDROcodone 325-5 MG Tab ONE (14:58)
[2023-01-09] MEDS ORDERED: Acetaminophen/HYDROcodone 325-5 MG Tab PO ONE (15:00)
[2023-01-09] MEDS ORDERED: Iopamidol 755 Mg/ML 100 ML Bottle IV ONE (15:36)
[2023-01-09 18:11] LABS: BLOOD UREA NITROGEN,BUN 14 mg/dL (7-18); BUN/CREATININE RATIO 23.3 (9-20); CALCIUM 8.5 mg/dL (8.6-10.2); CARBON DIOXIDE,CO2 25 mmol/L (21-32); CHLORIDE,CL 106 mmol/L (100-110); CREATININE 0.6 mg/dL (0.55-1.02); EST CRCL DRUG DOSING (CG) 91.32 mL/min; ESTIMATED GFR 118 mL/min (>60); GLUCOSE RANDOM 96 mg/dL (80-116); POTASSIUM,K 4.3 mmol/L (3.5-5.3); SODIUM,NA 138 mmol/L (135-145)
[2023-01-09 18:18] LABS: HEMOGLOBIN A1C 5.4 % (<5.7)
[2023-01-09] MEDS ORDERED: traMADol 50 MG Tab PO ONE (18:26)
[2023-01-09] MEDS ORDERED: Acetaminophen Soln 160 MG/5 ML UD Cup ONE (22:56)
== END 2023-01-09 19:20 | disposition home or self-care (01) ==
LOC: FB.ED 12:18
DX: R00.2 Palpitations (principal); G43.909 Migraine, unspecified, not intractable, without status migrainosus; F41.0 Panic disorder [episodic paroxysmal anxiety]; E87.6 Hypokalemia; E86.0 Dehydration; K21.9 Gastro-esophageal reflux disease without esophagitis; Z95.810 Presence of automatic (implantable) cardiac defibrillator; Z79.899 Other long term (current) drug therapy
CPT/HCPCS: 36415; 71045; 71275; 80048; 80053; 80307; 81001; 83036; 83735; 83880; 84484; 85025; 85379; 93005; 96361; 96374; 96375; 99285; A9270; J1885; J2060; J7030; Q9967

== ENCOUNTER 2023-05-10 21:55 | Emergency (ER) | payer SELFPAY ==
[2023-05-10] MEDS ORDERED: traMADol 50 MG Tab PO ONE (21:56)
== END 2023-05-10 22:50 | disposition home or self-care (01) ==
LOC: FB.ED 21:55
DX: G56.02 Carpal tunnel syndrome, left upper limb (principal); K21.9 Gastro-esophageal reflux disease without esophagitis; Z86.16 Personal history of COVID-19; Z79.899 Other long term (current) drug therapy
CPT/HCPCS: 99283; A9270